=== PATIENT | female | born 1975 | race Caucasian/White ===

== ENCOUNTER 2020-12-01 02:00 | Emergency (ER) | payer OTHER ==
[2020-12-01 02:09] VITALS: BP 117/80; PULSE 85; TEMP 98.1; BMI 23.5
[2020-12-01] MEDS ORDERED: METOCLOPRAMIDE HCL 10 MG TABLET (FP) PO ONE ×2 (02:59→03:03)
[2020-12-01] MEDS ORDERED: ACETAMINOPHEN/CAFFEINE/BUTALBITAL 1 TAB PO ONE (02:59)
[2020-12-01] MEDS ORDERED: ACETAMINOPHEN/CAFFEINE/BUTALBITAL 1 TAB ONE (03:03)
== END 2020-12-01 04:04 | disposition home or self-care (01) ==
LOC: JER 02:00
DX: G43.909 Migraine, unspecified, not intractable, without status migrainosus (principal); I10 Essential (primary) hypertension
CPT/HCPCS: 93005; 93010; 99283-25

== ENCOUNTER 2021-08-10 18:28 | Emergency (ER) | payer OTHER ==
[2021-08-10 18:45] VITALS: BP 132/85; PULSE 84; TEMP 97.8; BMI 25.0
[2021-08-10] MEDS ORDERED: SODIUM CHLORIDE 1,000 ML IV STA (20:55)
[2021-08-10] MEDS ORDERED: METOCLOPRAMIDE HCL INJECTION 10 MG/2 ML VIAL IVPB ONE (20:56)
[2021-08-10] MEDS ORDERED: METOCLOPRAMIDE HCL INJECTION 10 MG/2 ML VIAL ONE (21:06)
[2021-08-10 21:44] LABS: BASO % 0.7 % (0-2.0); EOS % 3.3 % (0-4.5); HEMATOCRIT 35.9 % (32.4-45.2); HEMOGLOBIN 12.1 GM/dL (10.7-15.3); LYMPH % 22.7 % (8-40); MCH 30.2 pg (25.7-33.7); MCHC 33.8 g/dl (32.0-36.0); MEAN CELL VOLUME 89.6 fl (80-96); MEAN PLT VOLUME 8.7 fl (7.5-11.1); MONO % 5.3 % (3.8-10.2); PLATELET COUNT 268 10^3/uL (134-434); RBC 4.01 M/mm3 (3.60-5.2); RDW 13.4 % (11.6-15.6); WHITE BLOOD COUNT 8.3 K/mm3 (4.0-10.0)
[2021-08-10 22:02] LABS: ARTERIAL BLD GAS O2 SATURATION 99.2 % (95-98); ARTERIAL BLOOD GAS BASE EXCESS -4.2 mmol/L (-2-2); ARTERIAL BLOOD GAS PO2 176.3 mmHg (80-100); ARTERIAL BLOOD GAS pH 7.386 (7.350-7.450)
[2021-08-10 22:04] LABS: ALBUMIN 4.1 g/dl (3.4-5.0); BLOOD UREA NITROGEN 12.3 mg/dL (7-18); CALCIUM 8.8 mg/dL (8.5-10.1)
[2021-08-10 22:07] LABS: ALLENS TEST POSITIVE
[2021-08-10 22:08] LABS: CREATININE 0.7 mg/dL (0.55-1.3)
[2021-08-10 22:09] LABS: BILIRUBIN,TOTAL 0.3 mg/dL (0.2-1); TOT PROT 7.3 g/dl (6.4-8.2)
[2021-08-10] MEDS ORDERED: ACETAMINOPHEN 500 MG TABLET (FP) PO ONE (22:32)
[2021-08-10] MEDS ORDERED: ACETAMINOPHEN 500 MG TABLET (FP) ONE (22:48)
== END 2021-08-10 23:30 | disposition home or self-care (01) ==
LOC: JER 18:28
PROC: 3E033GC Introduction of Other Therapeutic Substance into Peripheral Vein, Percutaneous Approach (ICD-10-PCS; principal; 2021-08-10)
PROC: 3E0337Z Introduction of Electrolytic and Water Balance Substance into Peripheral Vein, Percutaneous Approach (ICD-10-PCS; 2021-08-10)
DX: R51.9 Headache, unspecified (principal); X08.8XXA Exposure to other specified smoke, fire and flames, initial encounter
CPT/HCPCS: 36415; 36600; 71046-TC-FY; 80053; 82375; 82550; 82803; 84484; 85025; 93005; 93010; 99285-25